=== PATIENT | female | born 1990 | race Caucasian/White ===

== ENCOUNTER 2025-01-02 09:23 | Emergency (ER) | payer OTHER, SELFPAY ==
[2025-01-02 09:29] VITALS: BP 170/100; PULSE 84; TEMP 37.1; O2SAT 98; BMI 42.4
--- NOTE | 2025-01-02 09:49 | ED_ITS ---
HPI HPI - General Adult General Chief complaint: Extremity Injury, Upper Stated complaint: DISLOCATED FINGER R HAND Time Seen by Provider: 01/02/25 09:26 Source: patient Mode of arrival: walk-in History of Present Illness HPI narrative: 34-year-old female presents to the emergency department for pain in her right third finger. She injured it on December 21, 12 days ago, in [place]. She was seen in an emergency department and an x-ray was taken. She brings a copy of the x-ray report which indicates a dislocation and a small chip fracture as well. She states that they tried to put it back in place in [place] but were not successful. She tried to see an orthopedist today but they did not have enough money to see them. They came here instead. Related Data Home Medications ?Medication ?Instructions ?Recorded ?Confirmed escitalopram oxalate 10 mg tablet mg 01/02/25 lisinopril 20 tab 01/02/25 mg-hydrochlorothiazide 25 mg tablet metformin 750 mg tablet,extended mg PO 01/02/25 release 24 hr Allergies Allergy/AdvReac Type Severity Reaction Status Date / Time No Known Drug Allergies Allergy Verified 01/02/25 09:29 Opioid HPI Opioid Management Most Recent Opioid Data: Last Pain Scale 8 Today, 09:43 Review of Systems ROS Narrative A ten point review of systems is negative except as noted above. PFSH PFSH Social History Little interest or pleasure in doing things: not at all Feeling down, depressed, or hopeless: not at all Exam Narrative Exam Narrative: Nurses note and vital signs reviewed and patient is not hypoxic. General: The patient appears well and in no apparent distress. Patient is resting comfortably on cart. Skin: Warm, dry, no pallor noted. There is no rash noted. Head: Normocephalic, atraumatic Eye: Normal conjunctiva, no drainage Ears, Nose, Mouth, and Throat: oral mucosa is moist. Nares patent. Cardiovascular: Regular Rate and Rhythm Respiratory: Patient is in no distress, no accessory muscle use, lungs are clear to auscultation, no wheezing, rales or rhonchi Back: non-tender GI: Soft and nontender Musculoskeletal: There is swelling in the right third finger only. The other fingers are nontender and have full range of motion. She is reluctant to move the third finger. Skin intact Neurological: A&O, normal speech Psychiatric: Cooperative Constitutional Vital Signs, click to edit/add: Last Vital Signs Temp 98.7 F 01/02/25 09:29 Pulse 84 01/02/25 09:29 Resp 16 01/02/25 09:29 BP 170/100 H 01/02/25 09:29 Pulse Ox 98 01/02/25 09:29 O2 Del Method Room Air 01/02/25 09:29 Course Vital Signs Vital signs: Vital Signs Temperature 98.7 F 01/02/25 09:29 Pulse Rate 84 01/02/25 09:29 Respiratory Rate 16 01/02/25 09:29 Blood Pressure 170/100 H 01/02/25 09:29 Pulse Oximetry 98 01/02/25 09:29 Oxygen Delivery Method Room Air 01/02/25 09:29 Temperature 98.7 F 01/02/25 09:29 Pulse Rate 84 01/02/25 09:29 Respiratory Rate 16 01/02/25 09:29 Blood Pressure 170/100 H 01/02/25 09:29 Pulse Oximetry 98 01/02/25 09:29 Oxygen Delivery Method Room Air 01/02/25 09:29 Medical Decision Making MDM Narrative Medical decision making narrative: The following procedure was performed by me. Finger block applied to the right middle finger with 1% lidocaine without epinephrine resulting in complete skin anesthesia. The dislocated PIP joint of the right third finger was then reduced by me. Upon releasing the finger from my hand the dislocation clearly occurred again. I then reduced it a second time and with the nurse we splinted it and taped it in place. She is neurovascularly intact. The patient states she does not have health insurance and she was recommended follow-up with [facility] orthopedic clinic. Treatment diagnosis and follow- up were discussed thoroughly Differential Diagnosis Differential Diagnosis: Dislocation, fracture Imaging Data Right hand: My impression: Third finger PIP dislocation with fracture Discharge Plan Discharge Chief Complaint: Extremity Injury, Upper Clinical Impression: Dislocation of finger Patient Disposition: Home, Self-Care Time of Disposition Decision: 10:22 Condition: Good Mode of Transportation: Private Vehicle Prescriptions / Home Meds: No Action lisinopril-hydrochlorothiazide 20-25 mg tablet escitalopram oxalate 10 mg tablet metformin 750 mg tablet extended release 24 hr PO Print Language: [place] Instructions: Finger Dislocation (ED) Additional Instructions: You will need to follow-up with an orthopedist and will likely need to have surgery on your finger. Call the [facility] in [place] for follow-up. Leave splint in place until seen. Referrals: Shi De Jesus MD [Primary Care Provider, Family Practice] - 1 week
--- NOTE | 2025-01-02 10:00 | XR_ITS ---
[facility] [place] [id number] Patient Name: ERON LEVY MRN: [id number] date: 1990 Sex: F Assigned Patient Location: ER Current Patient Location: ED.[facility] Accession/Order Number: [id number] Exam Date: 01/02/2025 10:27 Report Date: 01/02/2025 10:31 At the request of: SREEDHAR BERMUDEZ MD Procedure: XR hand RT min 3V RIGHT HAND - 3 views CLINICAL DATA: Pain at the third finger since falling out of a truck 12 days ago. Patient reports finger was dislocated at that time. COMPARISON: None AP, lateral and oblique views were obtained. There is dislocation at the proximal interphalangeal joint of the third finger with the middle phalanx dorsal to the proximal phalanx. There is irregular bony density adjacent to the volar base of the middle phalanx on the lateral view suggesting associated displaced intra-articular fracture. The remaining bony structures are intact. Soft tissue swelling is seen at the third finger. XR/XR hand RT min 3V IMPRESSION: FRACTURE / DISLOCATION AT THE PROXIMAL INTERPHALANGEAL JOINT OF THE THIRD FINGER. Impression dictated by: Marycruz Osborne M.D. 01/02/2025 10:31 AM Dictation Location: [place] [address] Electronically authenticated by: [id number] Y Date: 01/02/2025 10:31
[2025-01-02] MEDS: LIDOCAINE HCL 1% 100 MG/10 ML MDV INJ (10:07)
== END 2025-01-02 10:50 | disposition home or self-care (01) ==
PROVIDERS: Emergency Provider Emergency Medicine; PCP Family Medicine
DX: S63.252A Unspecified dislocation of right middle finger, initial encounter (principal); X58.XXXA Exposure to other specified factors, initial encounter
CPT/HCPCS: 26770; 73130; 99283